=== PATIENT | male | born 1945 | race American Indian/Alaskan Native ===

== ENCOUNTER 2020-09-12 11:41 | Emergency (ER) | payer SELFPAY | END 2020-09-12 12:53 | disposition left against medical advice (07) | LOC: ED 11:41 ==

== ENCOUNTER 2021-02-14 15:57 | Emergency (ER) | payer MEDICARE ==
[2021-02-14 16:05] VITALS: BP 130/56
[2021-02-14] MEDS ORDERED: BUTALB/ACETAMINOPHEN/CAFFEINE TAB PO ONE (18:47)
--- NOTE | 2021-02-14 18:47 | Emergency Department Report ---
ED Headache HPI - General Chief Complaint: Dizziness Stated Complaint: MIGRAINE/HEADACHE/SINUS PRESSURE Time Seen by Provider: 02/14/21 18:35 - History of Present Illness Initial Comments: Patient presents with migraine headache. This is left-sided. It was gradual in onset and throbbing in nature. It is in the left temporal area and retro- orbital area. He did not have scotomata prior to onset. Is been present for 3 days. He has tried Tylenol and ibuprofen [id number] without symptomatic improvement. He came here for evaluation treatment because of the headache. There is no trauma. He does not feel vertiginous. There is been no numbness or tingling in the arms or legs. He has no new neurologic symptom. He has had no fevers or chills. The pain has not been so severe that he needed to come here until today. He states has been a couple of years since she has had a migraine headache. Allergies/Adverse Reactions: Allergies oxycodone Adverse Reaction (Verified 02/14/21 16:05) Itching sulfamethoxazole [From Bactrim] Adverse Reaction (Verified 02/14/21 16:05) Itching trimethoprim [From Bactrim] Adverse Reaction (Verified 02/14/21 16:05) Itching Home Medications: Ambulatory Orders Butalb/Acetaminophen/Caffeine [Fioricet 50-300-40 mg CAP] 1 cap PO Q6HR PRN #20 cap 02/14/21 ED Review of Systems ROS: Stated complaint: MIGRAINE/HEADACHE/SINUS PRESSURE Other details as noted in HPI Comment: All other systems reviewed and negative Constitutional: denies: fever Eyes: other (Legally blind) ENT: denies: throat pain Respiratory: denies: cough Cardiovascular: denies: chest pain Endocrine: denies: unexplained weight loss Gastrointestinal: denies: abdominal pain Genitourinary: denies: dysuria Musculoskeletal: denies: back pain Skin: denies: rash Neurological: as per HPI Hematological/Lymphatic: denies: easy bruising ED Past Medical Hx - Past Medical History Additional medical history: Migraine headaches, legally blind - Family History Family history: hypertension - Social History Smoking Status: Current Every Day Smoker (We discussed tobacco cessation x3 minutes) Substance Use Type: None - Medications Home Medications: Home Medications Medication Instructions Recorded Confirmed Last Taken Type Butalb/Acetaminophen/Caffeine 1 cap PO Q6HR PRN #20 cap 02/14/21 Unknown Rx [Fioricet 50-300-40 mg CAP] ED Physical Exam - General Limitations: No Limitations, Other (Pulse ox noted and normal) General appearance: alert, in no apparent distress - Head Head exam: Present: atraumatic, normocephalic, normal inspection - Eye Eye exam: Absent: scleral icterus, conjunctival injection - ENT ENT exam: Present: normal orophraynx, normal external ear exam - Neck Neck exam: Present: normal inspection. Absent: tenderness, meningismus - Respiratory Respiratory exam: Present: normal lung sounds bilaterally. Absent: respiratory distress - Cardiovascular Cardiovascular Exam: Present: regular rate, normal rhythm - GI/Abdominal GI/Abdominal exam: Present: soft. Absent: distended - Extremities Exam Extremities exam: Present: normal capillary refill - Back Exam Back exam: Absent: CVA tenderness (R), CVA tenderness (L) - Neurological Exam Neurological exam: Present: alert, oriented X3, normal gait, reflexes normal, other (No pronator drift or dysdiadochokinesia). Absent: motor sensory deficit - Psychiatric Psychiatric exam: Present: normal affect, normal mood - Skin Skin exam: Present: warm, dry ED Course Vital Signs 02/14/21 16:02 Pulse Rate 63 Respiratory 16 Rate Blood Pressure 130/56 [Left] O2 Sat by Pulse 99 Oximetry - Reevaluation(s) Reevaluation #1: 02/14/21 18:59 Patient was seen as above. Old records reviewed. ED Medical Decision Making - Medical Decision Making Patient presents with his migraine headache. He states this is usual for him. There is no trauma to suggest subdural or epidural hematomas. He has no fever or stiff neck to suggest meningitis. Patient has no facial rash suggestive of zoster. There is no new neurologic symptom that would suggest any type of space-occupying lesion. He was comfortable with outpatient treatment and management. This was not thunderclap in nature. It was not abrupt onset in nature. I do not believe this represents subarachnoid hemorrhage. Critical Care Time: No Critical care attestation.: If time is entered above; I have spent that time in minutes in the direct care of this critically ill patient, excluding procedure time. ED Disposition Clinical Impression: Migraine headache Qualifiers: Migraine type: without aura Status migrainosus presence: without status migrainosus Intractability: not intractable Qualified Code(s): G43.009 - Migraine without aura, not intractable, without status migrainosus Disposition: 01 HOME / SELF CARE / HOMELESS Is pt being admited?: No Condition: Stable Instructions: Migraine Headache, [id number] Additional Instructions: Drink plenty water. Return for problems. Do not drive while taking pain medication. Follow-up with your regular doctor for recheck and further management. Prescriptions: Butalb/Acetaminophen/Caffeine [Fioricet 50-300-40 mg CAP] 1 cap PO Q6HR PRN #20 cap PRN Reason: Headache Referrals: PRIMARY CAREMD [Referring] - 3-5 Days COLLEEN TOURE MD [Staff Physician] - 3-5 Days
== END 2021-02-14 19:06 | disposition home or self-care (01) ==
LOC: ED 15:57
DX: G43.909 Migraine, unspecified, not intractable, without status migrainosus (principal); F17.200 Nicotine dependence, unspecified, uncomplicated; H54.8 Legal blindness, as defined in USA
CPT/HCPCS: 99282